=== PATIENT | male | born 1965 | race Hispanic/Latino ===

== ENCOUNTER → 2022-10-23 | Outpatient (CLI) | payer OTHER ==
[~2022-10-23] MED LIST: IOHEXOL 350 MG/ML 100ML INFUS..BTL IV ONE; IOHEXOL-350 75 ML VIAL IV ONE
== END | disposition home or self-care (01) ==
LOC: RAH 15:00
PROVIDERS: ATTEND Internal Medicine Cardiovascular Disease
DX: J90 Pleural effusion, not elsewhere classified (principal); R06.02 Shortness of breath; R00.0 Tachycardia, unspecified; J98.11 Atelectasis
CPT/HCPCS: 71270; Q9967